=== PATIENT | female | born 1985 | race Caucasian/White ===

== ENCOUNTER 2022-12-06 15:56 | Day surgery (SDC) | payer OTHER ==
[2022-12-06] MEDS ORDERED: hydrALAZINE 20 MG/ML VIAL SLOW IVP PRN (17:10)
[2022-12-06 17:54] LABS: #Eosinphils 0.1 10x3/uL (0.0-0.5); #Monocytes 0.6 10x3/uL (0.0-1.1); %Basophils 0.1 % (0.0-2.0); %Eosinophils 0.5 % (0.0-6.0); %Lymphocytes 21.3 % (18.0-47.0); %Monocytes 5.8 % (0.0-10.0); Hematocrit 33.7 % (34.9-44.5); Hemoglobin 10.6 g/dL (12.0-15.5); Mean Corpuscular HGB CONC 31.5 g/dL (32.0-36.0); Mean Corpuscular Volume 76.2 fl (81.6-98.3); Mean Platelet Volume 10.3 fl (7.4-10.4); Platelet Count 258 10x3/uL (150-450); RBC Distribution Width 15.2 % (11.5-14.5); Red Blood Cell (RBC) Count 4.42 10x6/uL (3.90-5.03); White Blood Cell (WBC) Count 9.7 10x3/uL (3.5-10.5)
[2022-12-06 18:07] LABS: ALT (SGPT) 36 U/L (8-55); AST (SGOT) 24 U/L (5-34); Albumin 3.6 g/dL (3.5-5.0); Alkaline Phosphatase 92 U/L (40-110); Anion Gap 14 mmol/L (10-20); BUN (Urea Nitrogen) 6 mg/dL (7.0-18.7); Bilirubin, Total 0.5 mg/dL (0.2-1.2); Calc. Creatinine Clearance 0 mL/min (70-130); Calcium 8.7 mg/dL (7.8-10.44); Carbon Dioxide 18 mmol/L (22-29); Chloride 107 mmol/L (98-107); Estimated GFR 120; Glucose 87 mg/dL (70-105); Potassium 3.8 mmol/L (3.5-5.1); Protein, Total 6.6 g/dL (6.0-8.3); Sodium 135 mmol/L (136-145)
== END 2022-12-06 19:46 | disposition home or self-care (01) ==
LOC: CSHLD/OP 15:56
PROVIDERS: ATTEND Obstetrics & Gynecology
DX: O99.891 Other specified diseases and conditions complicating pregnancy (principal); R55 Syncope and collapse; O99.013 Anemia complicating pregnancy, third trimester; D64.9 Anemia, unspecified; Z3A.34 34 weeks gestation of pregnancy; Z79.899 Other long term (current) drug therapy
CPT/HCPCS: 36415; 76819; 80053; 85025; 99283

== ENCOUNTER 2023-01-07 15:22 | Day surgery (SDC) | payer OTHER ==
[2023-01-07 15:44] VITALS: BMI 38.0
[2023-01-07] MEDS ORDERED: hydrALAZINE 20 MG/ML VIAL SLOW IVP PRN (16:16)
[2023-01-07 17:16] LABS: #Eosinphils 0.1 10x3/uL (0.0-0.5); #Monocytes 0.6 10x3/uL (0.0-1.1); #Neutrophils 6.6 10x3/uL (1.5-8.4); %Basophils 0.2 % (0.0-2.0); %Eosinophils 0.5 % (0.0-6.0); %Monocytes 6.3 % (0.0-10.0); %Neutrophils 65.6 % (40.0-75.0); Hematocrit 34.4 % (34.9-44.5); Hemoglobin 10.6 g/dL (12.0-15.5); Mean Corpuscular HGB CONC 30.8 g/dL (32.0-36.0); Mean Corpuscular Hemoglobin 22.1 pg (27.0-33.0); Mean Corpuscular Volume 71.8 fl (81.6-98.3); Mean Platelet Volume 9.8 fl (7.4-10.4); Platelet Count 287 10x3/uL (150-450); RBC Distribution Width 16.3 % (11.5-14.5); Red Blood Cell (RBC) Count 4.79 10x6/uL (3.90-5.03)
[2023-01-07 17:29] LABS: ALT (SGPT) 41 U/L (8-55); AST (SGOT) 28 U/L (5-34); Albumin 3.2 g/dL (3.5-5.0); Alkaline Phosphatase 128 U/L (40-110); Anion Gap 12 mmol/L (10-20); BUN (Urea Nitrogen) 10 mg/dL (7.0-18.7); Bilirubin, Total 0.5 mg/dL (0.2-1.2); Calc. Creatinine Clearance 164 mL/min (70-130); Calcium 9.1 mg/dL (7.8-10.44); Carbon Dioxide 20 mmol/L (22-29); Chloride 106 mmol/L (98-107); Estimated GFR 117; Globulin 3.5 g/dL (2.4-3.5); Glucose 89 mg/dL (70-105); Potassium 3.9 mmol/L (3.5-5.1); Protein, Total 6.7 g/dL (6.0-8.3); Sodium 134 mmol/L (136-145)
[2023-01-07 17:45] LABS: Creatinine, Urine 132.54 mg/dL (47-110)
[2023-01-07 19:30] LABS: Anisocytosis MODERATE=16-30 cells (100X) (0-5/hpf); Hypochromia SLIGHT = 6-15 cells (100X) (0-5/hpf); Microcytosis SLIGHT = 6-15 cells (100X) (0-5/hpf); Poikilocytosis SLIGHT = 6-15 cells (100X) (0-5/hpf); Polychromasia SLIGHT = 2-3 cells (100X) (0-2/hpf); Tear Drops SLIGHT = 2-5 cells (100X) (0-1/hpf)
[2023-01-07 19:31] LABS: Crenated RBC SLIGHT = 1-5 cells (100X) (None Seen); Large Platelets SLIGHT (None Seen); Platelet Adequacy Comment Appears Adequate
== END 2023-01-07 18:45 | disposition home or self-care (01) ==
LOC: CSHLD/OP 15:22
PROVIDERS: ATTEND Obstetrics & Gynecology
DX: O24.419 Gestational diabetes mellitus in pregnancy, unspecified control (principal); O36.8130 Decreased fetal movements, third trimester, not applicable or unspecified; O99.343 Other mental disorders complicating pregnancy, third trimester; F41.9 Anxiety disorder, unspecified; O99.891 Other specified diseases and conditions complicating pregnancy; R03.0 Elevated blood-pressure reading, without diagnosis of hypertension; Z3A.36 36 weeks gestation of pregnancy; Z79.899 Other long term (current) drug therapy
CPT/HCPCS: 76819; 80053; 82570; 84156; 85025

== ENCOUNTER 2023-01-08 19:59 | Inpatient (IN) | payer OTHER ==
[2023-01-08 21:02] VITALS: BMI 38.0
[2023-01-08] MEDS ORDERED: Oxytocin 30 units/NS 500 ML 500 ML IV SCH ×3 (21:49)
[2023-01-08] MEDS ORDERED: Butorphanol Tartrate 1 MG/ML VIAL SLOW IVP PRN (21:49)
[2023-01-08] MEDS ORDERED: HYDROcodone/Acetaminophen 5/325 mg Tablet PO PRN ×2 (21:49)
[2023-01-08] MEDS ORDERED: Promethazine HCl 25 MG/ML VIAL IM PRN (21:49)
[2023-01-08] MEDS ORDERED: Lidocaine 1% (PF) 30 ML VIAL SC PRN (21:49)
[2023-01-08] MEDS ORDERED: Ondansetron PF 4 MG/2 ML Vial IVP PRN (21:49)
[2023-01-08] MEDS ORDERED: Ibuprofen 800 MG TAB PO PRN (21:49)
[2023-01-08] MEDS ORDERED: hydrALAZINE 20 MG/ML VIAL SLOW IVP PRN (21:49)
[2023-01-08] MEDS: Misoprostol 100 MCG TAB VAG SCH (23:52)
[2023-01-09 00:13] LABS: Hematocrit 33.5 % (34.9-44.5); Hemoglobin 10.4 g/dL (12.0-15.5); Mean Corpuscular Hemoglobin 22.1 pg (27.0-33.0); Mean Corpuscular Volume 71.3 fl (81.6-98.3); Mean Platelet Volume 10.3 fl (7.4-10.4); Platelet Count 291 10x3/uL (150-450); RBC Distribution Width 16.5 % (11.5-14.5); White Blood Cell (WBC) Count 12.4 10x3/uL (3.5-10.5)
[2023-01-09 00:40] LABS: Syphilis Antibody Nonreactive (Nonreactive); Syphilis Antibody Index 0.09 S/CO (<1.00 Non-Reactive)
[2023-01-09 00:41] LABS: HBSAg Index 0.15 S/CO (0-0.99); Hep B Surf Ag - L&D Non-Reactive S/CO (NonReactive)
[2023-01-09 00:50] LABS: ALT (SGPT) 38 U/L (8-55); AST (SGOT) 23 U/L (5-34); Albumin 3.4 g/dL (3.5-5.0); Alkaline Phosphatase 122 U/L (40-110); Anion Gap 15 mmol/L (10-20); BUN (Urea Nitrogen) 11 mg/dL (7.0-18.7); Bilirubin, Total 0.4 mg/dL (0.2-1.2); Calc. Creatinine Clearance 169 mL/min (70-130); Calcium 8.6 mg/dL (7.8-10.44); Carbon Dioxide 17 mmol/L (22-29); Chloride 109 mmol/L (98-107); Estimated GFR 118; Glucose 56 mg/dL (70-105); Potassium 4.1 mmol/L (3.5-5.1); Protein, Total 6.4 g/dL (6.0-8.3); Sodium 137 mmol/L (136-145)
[2023-01-09] MEDS: Lactated Ringer's 1,000 ML IV SCH ×3 (06:48→20:26)
[2023-01-09] MEDS ORDERED: Terbutaline Sulfate 1 MG/ML VIAL SC SCH (07:30)
[2023-01-09] MEDS ORDERED: Terbutaline Sulfate 1 MG/ML VIAL ONE ×2 (07:50→14:00)
[2023-01-09] MEDS ORDERED: fentaNYL/Ropivacaine Epidural 100 ML ONE (08:08)
[2023-01-09] MEDS ORDERED: Penicillin G Potassium 5 MILL.UNITS in Sodium Chloride 0.9% 100 ML IVPB SCH (08:30)
[2023-01-09] MEDS ORDERED: Penicillin G Potassium 5 MILL.UNITS VIAL ONE (08:35)
[2023-01-09] MEDS: Misoprostol 100 MCG TAB VAG SCH ×5 (08:52→20:27)
[2023-01-09] MEDS: ePHEDrine Sulfate 50 MG/10 ML VIAL SLOW IVP PRN ×2 (09:28→09:48)
[2023-01-09] MEDS ORDERED: Promethazine HCl 25 MG/ML VIAL IM PRN ×2 (09:55→16:00)
[2023-01-09] MEDS ORDERED: Moisturizing Cream (Eucerin) 113 GM JAR TOP PRN ×2 (09:55→16:00)
[2023-01-09] MEDS ORDERED: diphenhydrAMINE 50 MG/ML VIAL IVP PRN ×2 (09:55→16:00)
[2023-01-09] MEDS ORDERED: Lactated Ringer's 500 ML IV PRN (09:55)
[2023-01-09] MEDS ORDERED: Acetaminophen 325 MG TAB PO PRN (09:55)
[2023-01-09] MEDS ORDERED: Ondansetron PF 4 MG/2 ML Vial IVP PRN ×4 (09:55→20:18)
[2023-01-09] MEDS ORDERED: Naloxone HCl 0.4 mg/ml Vial IVP PRN ×4 (09:55→16:00)
[2023-01-09] MEDS ORDERED: fentaNYL 2 mcg/Ropivacaine 0.2% Epidural 100 ML CADD EPIDURAL SCH (10:00)
[2023-01-09] MEDS ORDERED: Communication Order-Pharmacy FS SCH ×2 (10:00→16:00)
[2023-01-09] MEDS: Penicillin G 2.5 MILL.units 2.5 MILL.UNITS in Premix 1 BAG IVPB SCH (13:08)
[2023-01-09] MEDS ORDERED: Bupivacaine 0.25% HCL 30 ML VIAL ONE (14:00)
[2023-01-09] MEDS ORDERED: ePHEDrine Sulfate 50 MG/10 ML VIAL ONE (14:00)
[2023-01-09] MEDS ORDERED: CEFAZOLIN 2 GM VIAL ONE (14:13)
[2023-01-09] MEDS ORDERED: Azithromycin 500 MG VIAL ONE (14:13)
[2023-01-09] MEDS ORDERED: Famotidine/PF 20 mg/2ml Vial SLOW IVP PRN (14:53)
[2023-01-09] MEDS ORDERED: Bicitra 30 ML UDCUP PO PRN (14:53)
[2023-01-09] MEDS ORDERED: Azithromycin 500 MG in Sodium Chloride 0.9% 250 ML 250 ML IVPB SCH (15:00)
[2023-01-09] MEDS ORDERED: CEFAZOLIN 2 GM in Sodium Chloride 0.9% 100 ML IVPB SCH (15:00)
[2023-01-09] MEDS ORDERED: EPINEPHrine 1 MG/10 ML Abboject SYRINGE ONE (15:09)
[2023-01-09] MEDS ORDERED: Lidocaine 2% MPF 10 ML AMP (For Epidural Use) ONE (15:09)
[2023-01-09] MEDS ORDERED: fentaNYL 50 mcg/mL 1 mL Vial ONE (15:09)
[2023-01-09] MEDS ORDERED: PHENYLEPHRINE-NS 100 MCG/ML 10 ML SYRINGE ONE ×2 (15:14→15:29)
[2023-01-09] MEDS ORDERED: Dexamethasone 4 mg/ml Vial ONE (15:18)
[2023-01-09] MEDS ORDERED: Metoclopramide HCl 10 MG/2 ML VIAL ONE (15:18)
[2023-01-09] MEDS ORDERED: Ondansetron PF 4 MG/2 ML Vial ONE (15:18)
[2023-01-09] MEDS ORDERED: Oxytocin 10 UNITS/ML VIAL ONE (15:22)
[2023-01-09] MEDS ORDERED: Morphine PF 10 MG/10 ML VIAL ONE (15:30)
[2023-01-09] MEDS ORDERED: Ketorolac Tromethamine 30 MG/ML VIAL ONE (15:38)
[2023-01-09 15:41] LABS: Analyzer IN Cardio CS NICU; RapidComm Collect By CBN
[2023-01-09 15:42] LABS: Analyzer IN Cardio CS NICU; RapidComm Collect By CBN; pH (Cord, venous) 7.332 (7.250-7.350)
[2023-01-09] MEDS ORDERED: Naloxone HCl 0.4 mg/ml Vial IV PRN (16:00)
[2023-01-09] MEDS ORDERED: Promethazine HCl 25 MG SUPP PR PRN (16:00)
[2023-01-09] MEDS ORDERED: Ketorolac Tromethamine 30 MG/ML VIAL IVP SCH (16:00)
[2023-01-09] MEDS ORDERED: Meperidine HCl/PF 25 MG/ML VIAL SLOW IVP PRN (16:00)
[2023-01-09] MEDS ORDERED: fentaNYL 50 mcg/mL 1 mL Vial SLOW IVP PRN (16:00)
[2023-01-09] MEDS ORDERED: hydrALAZINE 20 MG/ML VIAL SLOW IVP PRN (20:18)
[2023-01-09] MEDS ORDERED: Boostrix 0.5 ML (Tdap) VIAL (>/=7 yrs of age) IM ONE (20:18)
[2023-01-09] MEDS ORDERED: Oxytocin 30 units/NS 500 ML 500 ML IV SCH (20:18)
[2023-01-09] MEDS ORDERED: diphenhydrAMINE 25 MG CAP PO PRN (20:18)
[2023-01-09] MEDS ORDERED: Simethicone Chewable 80 MG TAB PO PRN (20:18)
[2023-01-09] MEDS ORDERED: Lanolin Ointment 7 GM TUBE TOP PRN (20:18)
[2023-01-09] MEDS ORDERED: Bisacodyl 10 MG SUPP PR PRN (20:18)
[2023-01-10] MEDS: Ketorolac Tromethamine 30 MG/ML VIAL IVP PRN ×3 (00:34→14:26)
[2023-01-10] MEDS: Docusate 100 MG CAP PO SCH ×3 (01:26→22:00)
[2023-01-10] MEDS: Ferrous Sulfate 325 MG TAB PO SCH ×3 (01:27→22:02)
[2023-01-10 04:31] LABS: Hematocrit 27.7 % (34.9-44.5); Hemoglobin 8.3 g/dL (12.0-15.5); Mean Corpuscular Hemoglobin 21.7 pg (27.0-33.0); Mean Corpuscular Volume 72.5 fl (81.6-98.3); Mean Platelet Volume 10.5 fl (7.4-10.4); Platelet Count 260 10x3/uL (150-450); RBC Distribution Width 16.5 % (11.5-14.5); Red Blood Cell (RBC) Count 3.82 10x6/uL (3.90-5.03); White Blood Cell (WBC) Count 12.7 10x3/uL (3.5-10.5)
[2023-01-10] MEDS: Prenatal Vitamin 1 TAB PO SCH (09:26)
[2023-01-10] MEDS: HYDROcodone/Acetaminophen 5/325 mg Tablet PO PRN ×3 (09:28→17:50)
[2023-01-10] MEDS: Penicillin G 2.5 MILL.units 2.5 MILL.UNITS in Premix 1 BAG IVPB SCH (10:18)
[2023-01-10] MEDS: Ibuprofen 800 MG TAB PO SCH (22:01)
[2023-01-11] MEDS: Ibuprofen 800 MG TAB PO SCH ×2 (04:12→13:20)
[2023-01-11] MEDS: HYDROcodone/Acetaminophen 5/325 mg Tablet PO PRN ×2 (05:51→13:21)
[2023-01-11 08:08] VITALS: BP 109/66; TEMP 98.8
[2023-01-11] MEDS: Prenatal Vitamin 1 TAB PO SCH (09:01)
[2023-01-11] MEDS: Ferrous Sulfate 325 MG TAB PO SCH (09:01)
[2023-01-11] MEDS: Docusate 100 MG CAP PO SCH (09:01)
== END 2023-01-11 16:25 | disposition home or self-care (01) | DRG 788 ==
LOC: CSHLD/OP 19:59 → CSHLD 23:25 → CSHPP 01-09 18:55
PROVIDERS: ADMIT Obstetrics & Gynecology; ATTEND Obstetrics & Gynecology
PROC: 10D00Z1 Extraction of Products of Conception, Low, Open Approach (ICD-10-PCS; principal; 2023-01-09)
PROC: 10907ZC Drainage of Amniotic Fluid, Therapeutic from Products of Conception, Via Natural or Artificial Opening (ICD-10-PCS; 2023-01-09)
PROC: 4A133R1 Monitoring of Arterial Saturation, Peripheral, Percutaneous Approach (ICD-10-PCS; 2023-01-09)
PROC: 3E033XZ Introduction of Vasopressor into Peripheral Vein, Percutaneous Approach (ICD-10-PCS; 2023-01-09)
DX: O14.04 Mild to moderate pre-eclampsia, complicating childbirth (principal); O99.824 Streptococcus B carrier state complicating childbirth; O24.425 Gestational diabetes mellitus in childbirth, controlled by oral hypoglycemic drugs; Z3A.37 37 weeks gestation of pregnancy; Z37.0 Single live birth; O99.344 Other mental disorders complicating childbirth; O09.523 Supervision of elderly multigravida, third trimester; O76 Abnormality in fetal heart rate and rhythm complicating labor and delivery
CPT/HCPCS: 36415; 51702; 80053; 82805; 85027; 86780; 86850; 86900; 86901; 87340; 99285; J0171; J0595; J1100; J1885; J2274; J2405; J2540; J2590; J2765; J3010; J3105; J7120; S0020